=== PATIENT | male | born 1955 | race Two or more races ===

== ENCOUNTER 2024-05-10 13:07 | Emergency (ER) | payer MEDICARE, OTHER ==
[~2024-05-10] VITALS: Ht 165.1 cm; Wt 72.6 kg
[2024-05-10 13:15] VITALS: TEMP 98.4
[2024-05-10] MEDS ORDERED: CHOL100062 PO (14:01)
[2024-05-10] MEDS ORDERED: ACET-868 PO (14:01)
[2024-05-10] MEDS ORDERED: DOCU100T2 PO (14:01)
[2024-05-10] MEDS ORDERED: DIVA125C5 PO (14:01)
[2024-05-10] MEDS ORDERED: FAMO20TA80 PO (14:01)
[2024-05-10] MEDS ORDERED: ENOX60DI8 SQ (14:01)
[2024-05-10] MEDS ORDERED: CARB1TAB21 PO (14:01)
[2024-05-10] MEDS ORDERED: FERR325T23 PO (14:01)
[2024-05-10] MEDS ORDERED: TAMS-12 PO (14:01)
[2024-05-10 14:37] LABS: BASOPHILS % (AUTO) 0.6 % (0.0-2.0); EOSINOPHILS # (AUTO) 0.1 K/uL (0.0-0.7); EOSINOPHILS % (AUTO) 1.4 % (0.0-6.0); HEMATOCRIT 29 % (39-51); HEMOGLOBIN 9.4 g/dL (13.5-17.5); LYMPHOCYTES # (AUTO) 1.9 K/uL (0.8-4.8); LYMPHOCYTES % (AUTO) 32.7 % (20.0-44.0); MEAN CORPUSCULAR HEMOGLOBIN 27 PG (26.0-33.0); MEAN CORPUSCULAR HGB CONC 33 g/dl (31.0-36.0); MEAN CORPUSCULAR VOLUME 82 fL (80-96); MONOCYTES # (AUTO) 0.5 K/uL (0.1-1.30); MONOCYTES % (AUTO) 9.1 % (2.0-12.0); NEUTROPHILS # (AUTO) 3.3 K/uL (1.8-8.9); NEUTROPHILS % (AUTO) 56.2 % (43.0-81.0); PLATELET COUNT (AUTO) 335 K/uL (150-450); RED BLOOD CELL COUNT(AUTO) 3.47 MIL/uL (4.5-6.0); RED CELL DISTRIBUTION WIDTH 16.2 % (11.5-15.0); WHITE BLOOD COUNT (AUTO) 5.9 K/uL (4.3-11.0)
[2024-05-10 14:40] LABS: APPEARANCE,URINE CLOUDY (CLEAR); BILIRUBIN,URINE NEGATIVE (NEGATIVE); BLOOD, URINE TRACE-INTA Ery/uL (NEGATIVE); COLOR,URINE YELLOW (YELLOW); KETONES,URINE NEGATIVE (NEGATIVE); LEUKOCYTE ESTERASE ,URINE 3+ (NEGATIVE); NITRITE, URINE POSITIVE (NEGATIVE); PROTEIN,URINE NEGATIVE (NEGATIVE); UGLUCOSE NEGATIVE (NEGATIVE); UROBILINOGEN,URINE 0.2 EU/dL (0.2)
[2024-05-10 14:46] LABS: CALCIUM, SERUM 8.8 mg/dL (8.5-10.1); CARBON DIOXIDE 29 mmol/L (21-32); CHLORIDE 104 mmol/L (98-107); GLUCOSE 97 mg/dL (74-106); POTASSIUM 4.7 mmol/L (3.5-5.1); SODIUM SERUM 139 mmol/L (136-145); UREA NITROGEN, BLOOD 21 mg/dL (7-18)
[2024-05-10 14:51] LABS: AMPHETAMINE, URINE NEGATIVE (NEGATIVE); BARBITURATE, URINE NEGATIVE (NEGATIVE); BENZODIAZEPINE, URINE NEGATIVE (NEGATIVE); CANNABINOID, URINE NEGATIVE (NEGATIVE); COCCAINE, URINE NEGATIVE (NEGATIVE); OPIATE, URINE NEGATIVE (NEGATIVE); PHENCYCLIDINE SCREEN,URINE NEGATIVE (NEGATIVE)
[2024-05-10 14:52] LABS: ALANINE AMINOTRANSFERASE < 6 U/L (12-78); ALBUMIN 2.6 g/dL (3.4-5.0); ALCOHOL, BLOOD < 3 mg/dL (0-10); ALKALINE PHOSPHATASE 87 U/L (46-116); ASPARTATE AMINOTRANSFERASE 12 U/L (15-37); BILIRUBIN,DIRECT 0.1 mg/dL (0.0-0.2); BILIRUBIN,TOTAL 0.2 mg/dL (0.2-1.0); TOTAL PROTEIN, SERUM 6.9 g/dL (6.4-8.2)
[2024-05-10 14:53] LABS: ACETAMINOPHEN 0 ug/ml (10-30); SALICYLATE 1.5 mg/dL (2.8-20.0)
[2024-05-10] MEDS: NITROFURANTOIN/MONOHYDRATE MACROCRYSTALS 100 MG CAPSULE PO ONE ×2 (15:22→15:30)
[2024-05-10 15:23] LABS: ADD URINE CULTURE YES; BACTERIA,URINE 4+ /HPF (None Seen); RBC,URINE 0-2 /HPF (0-2); WBC,URINE 51-80 /HPF (0-3)
[2024-05-10 15:24] LABS: SQUAMOUS EPITHELIAL CELL,UR Few /HPF (None Seen)
[2024-05-10] MEDS: NICOTINE PATCH (14MG) 14 MG PATCH.TD24 TD SCH (17:09)
[2024-05-10 21:00] VITALS: BP 126/67; O2SAT 99
[2024-05-10] MEDS ORDERED: ENOXAPARIN SODIUM 60 MG/0.6 ML DISP.SYRIN SQ SCH (21:00)
[2024-05-10] MEDS ORDERED: CARBIDOPA/LEVODOPA 25/100 MG 1 UDTAB PO SCH (21:00)
[2024-05-10] MEDS ORDERED: TAMSULOSIN 0.4 MG CAP.SR.24H PO SCH (22:00)
[2024-05-11] MEDS ORDERED: NITROFURANTOIN/MONOHYDRATE MACROCRYSTALS 100 MG CAPSULE PO SCH (07:00)
[2024-05-11] MEDS ORDERED: FERROUS SULFATE (325 MG) 325 MG/TAB TABLET PO SCH (09:00)
[2024-05-11] MEDS ORDERED: Medication Not On Formulary EA (Cholecalciferol (Vitamin D3) (Vitamin D3) 1,000 UNIT) PO SCH (09:00)
[2024-05-11] MEDS ORDERED: FAMOTIDINE (20 MG) 20 MG TABLET PO SCH (09:00)
[2024-05-11] MEDS ORDERED: DIVALPROEX SODIUM 125 MG CAP.SPRINK PO SCH (09:00)
[2024-05-11] MEDS ORDERED: Medication Not On Formulary EA (Docusate Sodium 100 MG) PO SCH (09:00)
== END 2024-05-10 23:09 | disposition short-term general hospital (02) ==
LOC: ER 13:26
DX: R45.6 Violent behavior (principal); F17.200 Nicotine dependence, unspecified, uncomplicated; Z86.69 Personal history of other diseases of the nervous system and sense organs; Z87.39 Personal history of other diseases of the musculoskeletal system and connective tissue; Z20.822 Contact with and (suspected) exposure to COVID-19
CPT/HCPCS: 36415; 80048-TC; 80076-TC; 81001; 85025-TC; 87081-TC; 87086-TC; 87186-TC; G0480